=== PATIENT | female | born 1965 | race African-American/Black ===

== ENCOUNTER 2021-05-27 23:16 | Emergency (ER) | payer MEDICARE, MEDICAID, SELFPAY ==
--- NOTE | ~2021-05-27 | CT_ITS ---
EXAMINATION: NONCONTRAST HEAD CT NONCONTRAST CERVICAL SPINE CT INDICATION INFORMATION: Fall, pain COMPARISON: None TECHNIQUE: Separate noncontrast CT examinations of the head and cervical spine were performed. Coronal head CT images and coronal and sagittal cervical spine images were created at the technologist workstation. DLP: 1146 mGy-cm DOSE LOWERING TECHNIQUES: This CT examination was performed using dose optimization techniques as appropriate, variously including the following: - Automated exposure control - Adjustment of mA and/or kV according to patient size (this includes techniques or standardized protocols for targeted exams were dose is matched to indication/reason for exam; i.e. extremities or head) - Use of iterative reconstruction technique FINDINGS: Head: There is no evidence of acute intracranial hemorrhage or territorial infarction. No abnormal mass-effect or midline shift is seen. Em to white matter differentiation is well preserved. No extra-axial fluid collections are identified. The ventricles are normal in size. There is no abnormal attenuation within the brain parenchyma. The osseous structures and soft tissues are normal. The mastoid air cells and visualized portions of the paranasal sinuses are well-aerated. Cervical spine: There is degenerative change at the atlantodens articulation. There is anatomic alignment of the vertebral bodies and posterior elements. Reversal of normal cervical lordosis could be due to positioning or muscle spasm. Vertebral body heights are maintained. There is disc space narrowing of the lower cervical spine with associated endplate osteophytes. No evidence of acute fracture. No prevertebral soft tissue swelling. Visualized portions of the lung apices are unremarkable. The thyroid gland is unremarkable. CT/CT cervical spine wo con IMPRESSION: No acute findings identified in the head or cervical spine.
[2021-05-27 23:42] VITALS: BP 160/90; PULSE 129; O2SAT 99
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
[2021-05-27 23:55] VITALS: BP 152/90; PULSE 87; RESP 18; TEMP 36.3; O2SAT 97; BMI 29.1
[2021-05-28] MEDS: Ketorolac Tromethamine 30 MG/ML VIAL 15 MG IM (01:35)
[2021-05-28] MEDS: Acetaminophen 325 MG TABLET 975 MG PO (01:38)
[2021-05-28 02:58] VITALS: BP 121/80; PULSE 80; RESP 16; O2SAT 98
== END 2021-05-28 03:00 | disposition home or self-care (01) ==
PROVIDERS: Emergency Provider Student in an Organized Health Care Education/Training Program
DX: S00.81XA Abrasion of other part of head, initial encounter (principal); S60.511A Abrasion of right hand, initial encounter; F43.10 Post-traumatic stress disorder, unspecified; Y04.2XXA Assault by strike against or bumped into by another person, initial encounter; Y93.9 Activity, unspecified; Y92.9 Unspecified place or not applicable; Y99.9 Unspecified external cause status; Z87.820 Personal history of traumatic brain injury
CPT/HCPCS: 70450; 72125; 96372; 99284; J1885